=== PATIENT | male | born 1990 | race Caucasian/White ===

== ENCOUNTER 2022-01-01 13:44 | Emergency (ER) | payer SELFPAY ==
[~2022-01-01] VITALS: Ht 175.3 cm; Wt 96.8 kg
[2022-01-01] MEDS ORDERED: HYDROcodone/APAP 5 MG/325 MG (LORTAB) TAB PO ONE (14:00)
[2022-01-01] MEDS ORDERED: CLIN-144 PO (14:10)
[2022-01-01] MEDS ORDERED: ACHD5005 PO (14:10)
--- NOTE | 2022-01-01 14:11 | ED Integumentary General ---
General Chief Complaint: Skin/Wound Problems Stated Complaint: SORES ON BACKSIDE Nursing Triage Note: Patient states he has had an abscess at the top of his buttocks for 2-3 days. Source: patient Exam Limitations: no limitations History of Present Illness Date Seen by Provider: Jan 01, 2022 Time Seen by Provider: 13:30 Initial Comments Patient is a 31-year-old male who presents with gluteal cyst above rectum. Symptoms began 2 to 3 days ago. Patient reports pain swelling and tenderness to this region. He denies fever chills or sweats. There is no drainage of cyst or abscess. Patient has had prior cyst which is required incision and drainage. He states it recurred 3 weeks ago and then went away on its own. He has not follow-up with a primary care physician or general surgeon. No other acute symptoms or complaints. Timing/Duration: yesterday, getting worse Severity: moderate Possible Cause: other Modifying Factors: improves with other Associated Symptoms: other Allergies and Home Medications Allergies Coded Allergies: No Known Drug Allergies (Unverified , 01/01/22) Patient Home Medication List Home Medication List Reviewed: Yes Review of Systems Review of Systems Constitutional: see HPI Skin: see HPI, other Past Xzhajtk-Zpsqbu-Bswvvh Hx Patient Social History Tobacco Use?: Yes Tobacco type used: Cigarettes Smoking Status: Current Everyday Smoker Substance use?: No Alcohol Use?: Yes Alcohol Frequency: Rarely Pt feels they are or have been: No Physical Exam Vital Signs Vital Signs - First Documented 01/01/22 13:56 Temp 36.8 Pulse 120 Resp 18 B/P (MAP) 172/125 (141) Pulse Ox 97 O2 Delivery Room Air Capillary Refill : Less Than 3 Seconds General Appearance: WD/WN, no apparent distress Skin: other (1 x 3 cm raised indurated region above rectum consistent with pilonidal cyst. No cellulitis fluctuance or drainage.) Progress/Results/Core Measures Results/Orders My Orders Orders - ANJUM BUSBY DO Hydrocodone/Apap 5/325 Tablet (Lortab 5 (01/01/22 14:00) Vital Signs/I&O 01/01/22 13:56 Temp 36.8 Pulse 120 Resp 18 B/P (MAP) 172/125 (141) Pulse Ox 97 O2 Delivery Room Air Blood Pressure Mean: 141 Departure Communication (Admissions) Early pilonidal cyst. Pain addressed. Will place on antibiotics pain medication with instructions to follow-up with PCP. Return precautions reviewed. Patient verbalizes understanding agreement discharge instructions prior to departure. Impression Primary Impression: Pilonidal cyst Disposition: 01 HOME, SELF-CARE Condition: Stable Departure-Patient Inst. Decision time for Depature: 14:09 Referrals: NO,LOCAL PHYSICIAN (PCP/Family) Primary Care Physician Patient Instructions: Pilonidal Cyst (DC) Add. Discharge Instructions: Please take ibuprofen for pain and newly prescribed medications as directed. Follow-up with your PCP in 3 to 5 days for reevaluation if symptoms persist. Return to the ED if new or worsening symptoms. All discharge instructions reviewed with patient and/or family. Voiced understanding. Scripts Hydrocodone/Acetaminophen (Hydrocodone-Acetamin 5-325 mg) 5 Mg-325 Mg Tablet 1 TAB PO Q4H PRN for PAIN-MODERATE (5-7), #14 TAB Prov: ANJUM BUSBY DO 01/01/22 Clindamycin HCl (Clindamycin HCl) 300 Mg Capsule 300 MG PO TID, #30 CAP Prov: ANJUM BUSBY DO 01/01/22 ANJUM BUSBY DO Jan 01, 2022 14:11
[2022-01-01 14:16] VITALS: BP 172/125
[2022-01-01] MEDS ORDERED: OXYC1TAB87 PO (14:28)
== END 2022-01-01 14:20 | disposition home or self-care (01) ==
LOC: ER FS 13:48
DX: L05.91 Pilonidal cyst without abscess (principal); F17.210 Nicotine dependence, cigarettes, uncomplicated; Z28.310 Unvaccinated for COVID-19
CPT/HCPCS: 99283

== ENCOUNTER 2022-01-05 18:17 | Emergency (ER) | payer SELFPAY ==
[~2022-01-05 18:17] MED LIST: ACHD5005 PO; CLIN-144 PO; OXYC1TAB87 PO
[2022-01-05] MEDS ORDERED: LIDOCAINE/EPI 2% 1:100,00 (XYLOCAINE) 20 ML VIAL INJ ONE (18:30)
[2022-01-05] MEDS ORDERED: LIDOCAINE/EPI 2% 1:200,00 (XYLOCAINE) 20 ML VIAL ONE (18:36)
--- NOTE | 2022-01-05 19:05 | ED Integumentary General ---
General Chief Complaint: Skin/Wound Problems Stated Complaint: CYST ON BOTTOM Nursing Triage Note: PT REPORTS THE "CYST" ON HIS BUTTOCKS IS DRAINING. Source: patient Exam Limitations: no limitations History of Present Illness Date Seen by Provider: Jan 05, 2022 Time Seen by Provider: 18:26 Initial Comments 31-year-old male presents for a "cyst" in his gluteal region. He states he had it once before but it resolved on its own. He was seen here 2 to 3 days ago and started on clindamycin. The pain has gotten better however the swelling is gotten worse. He has had some purulent drainage per his report. No fevers or chills nausea or vomiting. Allergies and Home Medications Allergies Coded Allergies: No Known Drug Allergies (Unverified , 01/01/22) Patient Home Medication List Home Medication List Reviewed: Yes Clindamycin HCl (Clindamycin HCl) 300 Mg Capsule, 300 MG PO TID Prescribed by: ANJUM BUSBY on 01/01/22 1410 Hydrocodone/Acetaminophen (Hydrocodone-Acetamin 5-325 mg) 5 Mg-325 Mg Tablet, 1 TAB PO Q4H PRN for PAIN-MODERATE (5-7) Prescribed by: ANJUM BUSBY on 01/01/22 1411 Oxycodone HCl/Acetaminophen (Percocet 5-325 mg Tablet) 1 Each Tablet, 1 TAB PO Q4H Prescribed by: ANJUM BUSBY on 01/01/22 1429 Review of Systems Review of Systems Constitutional: no symptoms reported EENTM: no symptoms reported Respiratory: no symptoms reported Cardiovascular: no symptoms reported Gastrointestinal: no symptoms reported Genitourinary: no symptoms reported Musculoskeletal: no symptoms reported Skin: other (Abscess in the buttock region) Psychiatric/Neurological: No Symptoms Reported Endocrine: No Symptoms Reported Hematologic/Lymphatic: No Symptoms Reported Past Knptyda-Irhmxg-Ikmuck Hx Patient Social History Tobacco Use?: Yes Tobacco type used: Cigarettes Smoking Status: Current Everyday Smoker Use of E-Cig and/or Vaping dev: No Substance use?: No Alcohol Use?: No Pt feels they are or have been: No Family Medical History Reviewed Nursing Family Hx No Pertinent Family Hx Physical Exam Vital Signs Vital Signs - First Documented 01/05/22 18:23 Temp 36.9 Pulse 106 Resp 18 B/P (MAP) 170/110 (130) Pulse Ox 100 O2 Delivery Room Air Capillary Refill : Less Than 3 Seconds General Appearance: WD/WN, no apparent distress HEENT: normal ENT inspection, pharynx normal Cardiovascular: regular rate, rhythm, no edema, no murmur Respiratory: chest non-tender, lungs clear, normal breath sounds, no respiratory distress, no accessory muscle use Gastrointestinal: normal bowel sounds, non tender, soft, no organomegaly Extremities: non-tender, normal inspection, no pedal edema, normal capillary refill Skin: other (4 cm x 2 cm abscess in the pilonidal region. There are some purulent drainage able to be expressed through the punctate central opening. No surrounding cellulitis.) Procedures/Interventions I&D : Site: Pilonidal abscess Blade Size: 11 I & D Procedure: betadine prep Progress Patient tolerated the procedure well without any complications. 1% lidocaine with epinephrine was used for anesthesia with good result. Large amount of purulent material drained with copious irrigation after. Progress/Results/Core Measures Results/Orders My Orders Orders - TESSIE HANSEN DO Lidocaine/Epi 2% 1:100,000 (Xylocaine/Ep (01/05/22 18:30) Lidocaine/Epi Mpf 2% 1:200,000 (Xylocain (01/05/22 18:36) Medications Given in ED Current Medications Medications Dose Ordered Sig/Ria Route Start Time Stop Time Status Last Admin Dose Admin Lidocaine/ Epinephrine 20 ml ONCE ONCE INJ 01/05/22 18:30 01/05/22 18:32 DC 01/05/22 18:38 20 ML Vital Signs/I&O 01/05/22 18:23 Temp 36.9 Pulse 106 Resp 18 B/P (MAP) 170/110 (130) Pulse Ox 100 O2 Delivery Room Air Blood Pressure Mean: 130 Departure Communication (Admissions) Abscess drained here in the emergency department large amount of purulent drainage. Irrigated copiously after. Patient tolerated well and is feeling better. He is already on clindamycin, will continue this. Given him surgeon to follow-up with and discussed that this would likely recur given the location. He states understanding. Questions were sought and answered he is discharged in stable condition. Impression Primary Impression: Pilonidal abscess Disposition: 01 HOME, SELF-CARE Condition: Stable Departure-Patient Inst. Referrals: OTONIEL WATERS DO NO,LOCAL PHYSICIAN (PCP) Primary Care Physician Add. Discharge Instructions: Please continue to take your antibiotics as prescribed. This was drained in the emergency department however it will likely continue to recur unless you get surgically fixed. I recommend you call Dr. Waters to schedule follow-up appointment. Return to the emergency department for any severe concerns. All discharge instructions reviewed with patient and/or family. Voiced understanding. ETSSIE HANSEN DO Jan 05, 2022 19:05
[2022-01-05 19:09] VITALS: BP 170/110
== END 2022-01-05 19:12 | disposition home or self-care (01) ==
LOC: EDUNIT# 18:17 → ER FS 18:18
DX: L05.01 Pilonidal cyst with abscess (principal); F17.210 Nicotine dependence, cigarettes, uncomplicated; Z28.310 Unvaccinated for COVID-19
CPT/HCPCS: 99282